=== PATIENT | male | born 1995 | race Caucasian/White ===

== ENCOUNTER 2020-09-23 10:08 | Emergency (ER) | payer OTHER ==
[~2020-09-23] VITALS: Ht 180.3 cm; Wt 68.0 kg
[~2020-09-23 10:08] MED LIST: ALBU90OI6 INH; CYCL10 PO; KETO10 PO; LANS15EC PO; NAPR500 PO; Naprosyn500 MG PO; Norco 5-325 Ta1 EACH PO; PENVK500 PO; Veetids 500500 MG PO
[2020-09-23] MEDS ORDERED: KETO10 PO (11:02)
[2020-09-23] MEDS ORDERED: CYCL10 PO (11:02)
== END 2020-09-23 12:55 | disposition home or self-care (01) ==
LOC: ER 10:08
DX: M25.511 Pain in right shoulder (principal); F17.210 Nicotine dependence, cigarettes, uncomplicated; X50.0XXA Overexertion from strenuous movement or load, initial encounter
CPT/HCPCS: 73010; 99283-25; A9270